=== PATIENT | female | born 1965 | race Caucasian/White ===

== ENCOUNTER 2017-12-27 15:28 | Emergency (ER) | payer OTHER ==
[~2017-12-27] VITALS: Ht 177.8 cm; Wt 74.2 kg
[2017-12-27 15:31] VITALS: BP 146/67; PULSE 69; RESP 16; TEMP 98.3; O2SAT 98
--- NOTE | 2017-12-27 16:33 | PD ---
HPI Chief Complaint: Edema Time Seen by Provider: 16:32 Travel History International Travel<30 days: No Contact w/Intl Traveler<30days: No Traveled to known affect area: No History of Present Illness HPI 52-year-old female came to the emergency room with history of left arm and elbow swelling and redness for past 24 hours. She's been experiencing pain since last night. No history of trauma. No history of fever or chills. Vital signs were stable. Patient says that one week ago she had noticed some swelling but it had gone away up until last night. She is otherwise a healthy person. [facility] Past Medical History Narrative Medical List of her past medical, surgical, social and family history is reviewed from the nursing note. Hx Anticoagulant Therapy: No Diabetes: No ?: Not : 3 Para: 3 Tubal Ligation: Yes Social History Alcohol Use: No Tobacco Use: Yes (1 1/2PPD) Substance Use: No Allergies-Medications (Allergen,Severity, Reaction): Coded Allergies: penicillin G (Verified Allergy, Severe, 12/27/17) No Known Allergies (Unverified Adverse Reaction, Unknown, 12/27/17) Comments List of allergies reviewed from the nursing note. Reported Meds & Prescriptions Reported Meds & Active Scripts Active Bactrim DS (Sulfamethoxazole-Trimethoprim) 800-160 Mg Tab 1 Tab PO BID Doxycycline Hyclate 100 Mg Cap 100 Mg PO BID Narrative Medication List of home medications reviewed from the nursing note. Review of Systems Except as stated in HPI: all other systems reviewed are Neg Physical Exam Narrative GENERAL: Awake, alert, mild distress SKIN: Focused skin assessment warm/dry. Left upper extremity elbow area extensor surface is redness, swelling, tender to touch. This is a 5 cm x 5 cm. There is questionable fluctuance. HEAD: Atraumatic. Normocephalic. EYES: Pupils equal and round. No scleral icterus. No injection or drainage. ENT: No nasal bleeding or discharge. Mucous membranes pink and moist. NECK: Trachea midline. No JVD. CARDIOVASCULAR: Regular rate and rhythm. No murmur appreciated. RESPIRATORY: No accessory muscle use. Clear to auscultation. Breath sounds equal bilaterally. GASTROINTESTINAL: Abdomen soft, non-tender, nondistended. Hepatic and splenic margins not palpable. MUSCULOSKELETAL: No obvious deformities. No clubbing. No cyanosis. No edema. NEUROLOGICAL: Awake and alert. No obvious cranial nerve deficits. Motor grossly within normal limits. Normal speech. PSYCHIATRIC: Appropriate mood and affect; insight and judgment normal. Data Data Last Documented VS Orders Orders Basic Metabolic Panel (Bmp) (12/27/17 16:46) Complete Blood Count With Diff (12/27/17 16:46) Blood Culture (12/27/17 16:46) Ct Elbow W Iv Contrast (12/27/17 ) C-Reactive Protein (Crp) (12/27/17 16:49) Vancomycin Inj (Vancomycin Inj) (12/27/17 17:00) Diphenhydramine Inj (Benadryl Inj) (12/27/17 18:15) Iohexol 350 Inj (Omnipaque 350 Inj) (12/27/17 18:39) Ed Discharge Order (12/27/17 19:31) Labs Laboratory Tests Test 12/27/17 17:06 White Blood Count 7.5 TH/MM3 Red Blood Count 4.91 MIL/MM3 Hemoglobin 14.1 GM/DL Hematocrit 43.5 % Mean Corpuscular Volume 88.5 FL Mean Corpuscular Hemoglobin 28.7 PG Mean Corpuscular Hemoglobin Concent 32.5 % Red Cell Distribution Width 12.8 % Platelet Count 225 TH/MM3 Mean Platelet Volume 7.9 FL Neutrophils (%) (Auto) 66.7 % Lymphocytes (%) (Auto) 23.6 % Monocytes (%) (Auto) 5.1 % Eosinophils (%) (Auto) 4.0 % Basophils (%) (Auto) 0.6 % Neutrophils # (Auto) 5.0 TH/MM3 Lymphocytes # (Auto) 1.8 TH/MM3 Monocytes # (Auto) 0.4 TH/MM3 Eosinophils # (Auto) 0.3 TH/MM3 Basophils # (Auto) 0.0 TH/MM3 CBC Comment DIFF FINAL Differential Comment Blood Urea Nitrogen 11 MG/DL Creatinine 0.66 MG/DL Random Glucose 100 MG/DL Calcium Level 8.9 MG/DL Sodium Level 142 MEQ/L Potassium Level 3.9 MEQ/L Chloride Level 109 MEQ/L Carbon Dioxide Level 26.8 MEQ/L Anion Gap 6 MEQ/L Estimat Glomerular Filtration Rate 95 ML/MIN C-Reactive Protein LESS THAN 0.29 MG/DL MDM Medical Decision Making Medical Screen Exam Complete: Yes Emergency Medical Condition: Yes Medical Record Reviewed: Yes Differential Diagnosis Cellulitis, abscess, infected bursitis Narrative Course 4:53 PM awaiting for the blood test result and CAT scan to be done and resulted. I have ordered for IV vancomycin in the meanwhile. If the CAT scan shows fluid collection I will aspirate and send it for culture. 6:24 PM blood test results of back and within acceptable limits. Awaiting for the CAT scan to be done and resulted. I was told by the nurse that by the time the vancomycin was done patient started to feel itchy. I've given her some Benadryl. No respiratory symptoms. 7 PM case was signed out to the on coming physician Procedures EKG Prior to Arrival: No Scripts Sulfamethoxazole-Trimethoprim (Bactrim DS) 800-160 Mg Tab 1 TAB PO BID for Infection, #20 TAB 0 Refills Prov: Guillaume Ibrahim MD 12/27/17 Doxycycline Hyclate (Doxycycline Hyclate) 100 Mg Cap 100 MG PO BID for Infection, #20 CAP 0 Refills Prov: Guillaume Ibrahim MD 12/27/17 Josemanuel Goff MD Dec 27, 2017 16:33
[2017-12-27] MEDS ORDERED: VANCOMYCIN INJ 1,000 MG in SODIUM CHLOR 0.9% 250 ML INJ 250 ML IV ONE (17:00)
[2017-12-27 17:21] LABS: BASOPHIL % 0.6 % (0.0-2.0); EOSINOPHIL # 0.3 TH/MM3 (0-0.4); HEMATOCRIT 43.5 % (35.0-46.0); HEMOGLOBIN 14.1 GM/DL (11.6-15.3); LYMPH % 23.6 % (9.0-44.0); LYMPHOCYTE # 1.8 TH/MM3 (1.0-4.8); MEAN CELL VOLUME 88.5 FL (80.0-100.0); MEAN CORPUSCULAR HEMOGLOBIN 28.7 PG (27.0-34.0); MEAN CORPUSCULAR HGB CONC 32.5 % (32.0-36.0); MEAN PLATELET VOLUME 7.9 FL (7.0-11.0); MONO % 5.1 % (0.0-8.0); MONOCYTE # 0.4 TH/MM3 (0-0.9); NEUT % 66.7 % (16.0-70.0); PLATELET COUNT 225 TH/MM3 (150-450); RED BLOOD COUNT 4.91 MIL/MM3 (4.00-5.30); RED CELL DISTRIBUTION WIDTH 12.8 % (11.6-17.2); WHITE BLOOD COUNT 7.5 TH/MM3 (4.0-11.0)
[2017-12-27 17:45] LABS: CALCIUM 8.9 MG/DL (8.5-10.1)
[2017-12-27 17:46] LABS: BICARBONATE 26.8 MEQ/L (21.0-32.0)
[2017-12-27 17:49] LABS: CREATININE 0.66 MG/DL (0.50-1.00)
[2017-12-27] MEDS ORDERED: diphenhydrAMINE HCL 50 MG/ML VIAL IV PUSH ONE (18:15)
[2017-12-27] MEDS ORDERED: IOHEXOL 350 MG/ML 10 ML VIAL (for RAD DIAG) IVCONTRAST ONE (18:39)
[2017-12-27 19:05] VITALS: BP 111/63; PULSE 64; RESP 20; O2SAT 100
--- NOTE | 2017-12-27 19:11 | RADRPT ---
EXAM DATE/TIME: 12/27/2017 18:32 [place] COMPARISON: No previous studies available for comparison. INDICATIONS : Left elbow redness and swelling. Evaluate for cellulitis. IV CONTRAST: 75 cc Omnipaque 350 (iohexol) IV RADIATION DOSE: 15.76 CTDIvol (mGy) MEDICAL HISTORY : None SURGICAL HISTORY : Tubal ligation. ENCOUNTER: Initial ACUITY: 1 day PAIN SCALE: 7/10 LOCATION: Left elbow TECHNIQUE: Volumetric scanning of the elbow was performed. Using automated exposure control and adjustment of t he mA and/or kV according to patient size, radiation dose was kept as low as reasonably achievable to obtain optimal diagnostic quality images. DICOM format image data is available electronically for r eview and comparison. FINDINGS: There is stranding in the subcutaneous fat of the distal left arm and proximal forearm posteriorly ch aracteristic of a cellulitis. No drainable abscess. No acute bony abnormalities. Normal bony alignmen t. CONCLUSION: 1. Cellulitis of the posterior aspect of the distal arm and proximal forearm. No bony abnormality. No significant joint effusion. Chris Alexander MD on December 27, 2017 at 19:07 Board Certified Radiologist. This report was verified electronically.
--- NOTE | 2017-12-27 19:22 | PD ---
Physical Exam Date Seen by Provider: Dec 27, 2017 Time Seen by Provider: 19:00 Narrative The patient was signed out to me by Dr. Goff at change of shift. Please see her H&P for further details. This is a 52-year-old female presents with elbow redness and pain. Concern was there could be an underlying abscess. Dr. Goff's working diagnosis was bursitis versus cellulitis. Data Data Last Documented VS Vital Signs Date Time Temp Pulse Resp B/P (MAP) Pulse Ox O2 Delivery O2 Flow Rate FiO2 12/27/17 19:05 64 20 111/63 (79) 100 12/27/17 15:31 98.3 Orders Orders Basic Metabolic Panel (Bmp) (12/27/17 16:46) Complete Blood Count With Diff (12/27/17 16:46) Blood Culture (12/27/17 16:46) Ct Elbow W Iv Contrast (12/27/17 ) C-Reactive Protein (Crp) (12/27/17 16:49) Vancomycin Inj (Vancomycin Inj) (12/27/17 17:00) Diphenhydramine Inj (Benadryl Inj) (12/27/17 18:15) Iohexol 350 Inj (Omnipaque 350 Inj) (12/27/17 18:39) Labs Laboratory Tests Test 12/27/17 17:06 White Blood Count 7.5 TH/MM3 Red Blood Count 4.91 MIL/MM3 Hemoglobin 14.1 GM/DL Hematocrit 43.5 % Mean Corpuscular Volume 88.5 FL Mean Corpuscular Hemoglobin 28.7 PG Mean Corpuscular Hemoglobin Concent 32.5 % Red Cell Distribution Width 12.8 % Platelet Count 225 TH/MM3 Mean Platelet Volume 7.9 FL Neutrophils (%) (Auto) 66.7 % Lymphocytes (%) (Auto) 23.6 % Monocytes (%) (Auto) 5.1 % Eosinophils (%) (Auto) 4.0 % Basophils (%) (Auto) 0.6 % Neutrophils # (Auto) 5.0 TH/MM3 Lymphocytes # (Auto) 1.8 TH/MM3 Monocytes # (Auto) 0.4 TH/MM3 Eosinophils # (Auto) 0.3 TH/MM3 Basophils # (Auto) 0.0 TH/MM3 CBC Comment DIFF FINAL Differential Comment Blood Urea Nitrogen 11 MG/DL Creatinine 0.66 MG/DL Random Glucose 100 MG/DL Calcium Level 8.9 MG/DL Sodium Level 142 MEQ/L Potassium Level 3.9 MEQ/L Chloride Level 109 MEQ/L Carbon Dioxide Level 26.8 MEQ/L Anion Gap 6 MEQ/L Estimat Glomerular Filtration Rate 95 ML/MIN C-Reactive Protein LESS THAN 0.29 MG/DL [facility] Medical Record Reviewed: Yes Supervised Visit with CHRIS: No Differential Diagnosis Cellulitis versus bursitis versus intra-articular infection versus abscess. Narrative Course 52-year-old female presents with 1 day history of left elbow pain and redness. Patient is white blood cell count is within normal limits. CT scan ordered by the previous physician shows no evidence of abscess. There is evidence of cellulitis. She has been given 1 dose of vancomycin. She will be discharged with a prescription for Bactrim and doxycycline. She is instructed to return if the redness increases, she develops fevers, chills, or any other reason that concerns her. Diagnosis Primary Impression: Cellulitis of left elbow Additional Instruction: Return if worse pain, increased swelling, fevers, chills or any other reason that concerns you. Follow-up with her primary care physician. Motrin 600 mg every 6-8 hours as needed 2-3 days. Moist heat 2-3 times a day. Scripts Sulfamethoxazole-Trimethoprim (Bactrim DS) 800-160 Mg Tab 1 TAB PO BID for Infection, #20 TAB 0 Refills Prov: Guillaume Ibrahim MD 12/27/17 Doxycycline Hyclate (Doxycycline Hyclate) 100 Mg Cap 100 MG PO BID for Infection, #20 CAP 0 Refills Prov: Guillaume Ibrahim MD 12/27/17 Disposition: 01 DISCHARGE HOME Condition: Stable Guillaume Ibrahim MD Dec 27, 2017 19:22
[2017-12-27] MEDS ORDERED: BACT800T5 PO (19:25)
[2017-12-27] MEDS ORDERED: DOXY100C PO (19:25)
== END 2017-12-27 19:37 | disposition home or self-care (01) ==
LOC: PHEFT 15:28
DX: L03.116 Cellulitis of left lower limb (principal); F17.200 Nicotine dependence, unspecified, uncomplicated; Z88.0 Allergy status to penicillin
CPT/HCPCS: 73201; 80048; 85025; 86140; 87040; 96374; 96375; 99285; J1200; J3370; J7050; Q9967